=== PATIENT | male | born 1985 | race Hispanic/Latino ===

== ENCOUNTER 2017-11-05 22:30 | Emergency (ER) | payer SELFPAY ==
[2017-11-05] MEDS ORDERED: AMOXicillin 250 MG CAP ONE (22:51)
== END 2017-11-05 22:54 | disposition home or self-care (01) ==
LOC: BURERS 22:30
DX: J06.9 Acute upper respiratory infection, unspecified (principal); B30.9 Viral conjunctivitis, unspecified; F17.210 Nicotine dependence, cigarettes, uncomplicated
CPT/HCPCS: 99283